=== PATIENT | female | born 1985 | race African-American/Black ===

== ENCOUNTER → 2016-07-24 | Outpatient (CLI) | payer MEDICAID | LOC: FIMAGING 16:02 | DX: R10.31 Right lower quadrant pain (principal) ==

== ENCOUNTER 2016-09-18 22:30 | Emergency (ER) | payer MEDICAID ==
--- NOTE | 2016-09-19 00:24 | EDPHY ---
H & P Stated Complaint: cough x4d, post-tussive emesis Time Seen by Provider: 09/18/16 23:47 HPI/ROS: Chief Complaint: Cough HPI: 31-year-old female with to 3 days of cough which is not productive, general malaise, subjective fevers and chills, congestion and runny nose. Patient's daughters had similar symptoms. Some posttussive vomiting. No shortness of breath. ROS: 10 point Review of Systems is negative except as noted in the HPI. PMH: None Social History: No smoking, no alcohol, no recreational drug use Family History: non-contributory Physical Exam: Gen: Awake, Alert, No Distress HEENT: Nose: no rhinorrhea Eyes: PERRLA, EOMI Mouth: Moist mucosa Neck: Supple, no JVD Chest: nontender, lungs clear to auscultation Heart: S1, S2 normal, no murmur Abd: Soft, non-tender, no guarding Back: no CVA tenderness, no midline tenderness Ext: no edema, non-tender Skin: no rash Neuro: CN II-XII intact, Sensation grossly intact, Strength 5/5 in bilateral upper and lower extremities - Personal History LMP (Females 10-55): Now Current Tetanus/Diphtheria Vaccine: Yes Current Tetanus Diphtheria and Acellular Pertussis (TDAP): Yes - Medical/Surgical History Hx Asthma: No Hx Chronic Respiratory Disease: No Hx Diabetes: No Hx Cardiac Disease: No Hx Renal Disease: No Hx Cirrhosis: No Hx Alcoholism: No Hx HIV/AIDS: No Hx Splenectomy or Spleen Trauma: No Other PMH: inactive TB (meds in 2006) - Social History Smoking Status: Never smoked Constitutional: Initial Vital Signs Temperature (C) 36.7 C 09/18/16 22:33 Heart Rate 93 09/18/16 22:33 Respiratory Rate 16 09/18/16 22:33 Blood Pressure 118/71 09/18/16 22:33 O2 Sat (%) 97 09/18/16 22:33 O2 Delivery Mode Room Air Allergies/Adverse Reactions: Egg Derived Allergy (Verified 09/18/16 22:36) EGGS Allergy (Uncoded 07/27/14 13:46) Home Medications: Medication Instructions Recorded NK [No Known Home Meds] 09/18/16 Medical Decision Making - Diagnostics Imaging Results: Imaging Impressions Chest X-Ray 09/18/16 23:52 Impression: Normal. Imaging: I viewed and interpreted images myself ED Course/Re-evaluation: Patient with viral upper respiratory symptoms and bronchitis. Chest x-ray is negative for any acute process at this time. No indication for antibiotics. Will give the patient albuterol inhaler with a spacer. Follow up with primary care physician in 3-4 days if symptoms are not improving. Departure - Departure Disposition: Home, Routine, Self-Care Clinical Impression: Acute bronchitis Condition: Good Instructions: Acute Bronchitis (ED), Wheezing (ED), Albuterol (By breathing) Additional Instructions: You may use your albuterol inhaler 1-2 puffs every 4 hours as needed for cough. Always use a spacer when you use your inhaler. Follow up with primary care physician in 2-4 days if symptoms are not improving. Referrals: Cheryl Stevens [Primary Care Provider] - As per Instructions
[2016-09-19] MEDS ORDERED: ALBUTEROL INH PREPACK MDI TAKEHOME ONE (00:41)
[2016-09-19 01:12] VITALS: BP 126/87; PULSE 90; RESP 18; TEMP 98.6; O2SAT 96
== END 2016-09-19 01:10 | disposition home or self-care (01) ==
DX: J20.9 Acute bronchitis, unspecified (principal)

== ENCOUNTER 2016-09-23 20:32 | Emergency (ER) | payer MEDICAID ==
[2016-09-23 20:43] VITALS: PULSE 106; RESP 18; TEMP 98.4
--- NOTE | 2016-09-23 21:06 | EDPHY ---
H & P Stated Complaint: seen last week, cough has continued Time Seen by Provider: 09/23/16 20:58 HPI/ROS: CHIEF COMPLAINT: Continued cough times 12 days HISTORY OF PRESENT ILLNESS: 31-year-old immunocompetent female, nonsmoker, complaining of 12 days of nonproductive cough, sore throat, rhinorrhea. She was seen the ER few days ago for similar symptoms, diagnosed with likely viral URI. No chest pain. No dyspnea. No back pain. No abdominal pain. No nuchal rigidity. No myalgias. No GI complaints. PRIMARY CARE PROVIDER:the [facility], doctor Cheryl Stevens REVIEW OF SYSTEMS: A ten point review of systems was performed and is negative with the exception of the items mentioned in the HPI PAST MEDICAL & SURGICAL HISTORY: No immunocompromised/suppressed conditions SOCIAL HISTORY: nonsmoker PHYSICAL EXAM (Prior to examination, patient consented to physical exam, hands were washed and my usual and customary physical exam procedures followed) 1) GENERAL: Well-developed, well-nourished, alert and oriented. Appears nontoxic . Coughing 2) HEAD: Normocephalic, atraumatic 3) HEENT: Pupils equal, round, reactive to light bilaterally. Sclera anicteric. Nasopharynx: Rhinorrhea, oropharynx, clear, no lesions. No tonsillar enlargement tonsillar exudate Ears bilaterally with normal tympanic membranes. 4) NECK: Full range of motion, no meningeal signs. 5) LUNGS: Clear auscultation bilaterally, no wheezes, no rhonchi, no retractions. 6) HEART: Regular rate and rhythm, no murmur, no heave, no gallop. 7) ABDOMEN: No guarding, no rebound, no focal tenderness,, 8) MUSCULOSKELETAL: No peripheral edema or discoloration. 9) BACK: , no visual or palpable abnormality. 10) SKIN: No rash, no petechiae. DIFFERENTIAL DIAGNOSIS: in no particular order including but limited to bronchitis, pneumonia, pulmonary embolus - Personal History LMP (Females 10-55): 1-7 Days Ago Current Tetanus Diphtheria and Acellular Pertussis (TDAP): Yes - Medical/Surgical History Hx Asthma: No Hx Chronic Respiratory Disease: No Hx Diabetes: No Hx Cardiac Disease: No Hx Renal Disease: No Hx Cirrhosis: No Hx Alcoholism: No Hx HIV/AIDS: No Hx Splenectomy or Spleen Trauma: No Other PMH: inactive TB (meds in 2006) - Social History Smoking Status: Never smoked Constitutional: Initial Vital Signs Temperature (C) 36.9 C 09/23/16 20:39 Heart Rate 106 H 09/23/16 20:39 Respiratory Rate 18 09/23/16 20:39 Blood Pressure 117/76 09/23/16 20:39 O2 Sat (%) 98 09/23/16 20:39 O2 Delivery Mode Room Air Allergies/Adverse Reactions: Egg Derived Allergy (Verified 09/18/16 22:36) EGGS Allergy (Uncoded 07/27/14 13:46) Home Medications: Medication Instructions Recorded AZITHROMYCIN [Z-PACK] 500 mg PO DAILY #1 packet 09/23/16 Albuterol 09/23/16 Benzonatate [Tessalon Pearles (RX)] 200 mg PO TID PRN #15 cap 09/23/16 Mucus Rlf [id number] Liq 09/23/16 Tylenol 09/23/16 Medical Decision Making ED Course/Re-evaluation: This patient has continued URI symptoms including cough. No dyspnea. She is noted to be tachycardic at 106 beats per minute. I think that pulmonary embolus is less than likely in this patient in the presence of concurrent URI symptoms. I do not think that diagnostic studies indicated. I do not think that chest areas indicated as her lungs are clear bilaterally he has maintain normal saturations not tachypneic. Given the longevity of symptoms, 12 days, I have recommended a trial of antibiotics. She is agreeable with this. She is also prescribed antitussive. Departure - Departure Disposition: Home, Routine, Self-Care Clinical Impression: Upper respiratory infection Qualifiers: URI type: unspecified URI Qualified Code(s): J06.9 - Acute upper respiratory infection, unspecified Condition: Good Instructions: Upper Respiratory Infection (ED) Additional Instructions: Return to the emergency department immediately for change in breathing habits, change in voice, change in swallowing habits, change in mental status, or any other symptoms that concern you. Referrals: Cheryl Stevens [Primary Care Provider] - 1-2 days without fail Prescriptions: AZITHROMYCIN [Z-PACK] 500 mg PO DAILY #1 packet Benzonatate [Tessalon Pearles (RX)] 200 mg PO TID PRN #15 cap PRN Reason: Cough, Moderate
[2016-09-23] MEDS ORDERED: ONDANSETRON DISINTEGRATING 4 MG TAB ONE (21:12)
[2016-09-23] MEDS ORDERED: ONDANSETRON DISINTEGRATING 4 MG TAB PO ONE (21:12)
[2016-09-23] MEDS ORDERED: ONDANSETRON 4MG PREPACK#2 BTL TAKEHOME ONE (21:28)
[2016-09-23] MEDS ORDERED: BENZONATATE 100 MG CAP PO ONE (21:33)
[2016-09-23 21:40] VITALS: BP 110/84; O2SAT 96
== END 2016-09-23 21:42 | disposition home or self-care (01) ==
DX: J06.9 Acute upper respiratory infection, unspecified (principal)

== ENCOUNTER 2016-12-31 02:19 | Emergency (ER) | payer OTHER, MEDICAID ==
[2016-12-31 02:32] VITALS: RESP 16; TEMP 98.1
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
[2016-12-31] MEDS ORDERED: IBUPROFEN 600 MG TAB PO ONE (03:15)
[2016-12-31 03:26] VITALS: BP 109/80; PULSE 88; O2SAT 99
== END 2016-12-31 03:30 | disposition home or self-care (01) ==
LOC: CED 02:19
DX: S00.83XA Contusion of other part of head, initial encounter (principal); W22.8XXA Striking against or struck by other objects, initial encounter; Y92.89 Other specified places as the place of occurrence of the external cause
CPT/HCPCS: 70110-PO

== ENCOUNTER 2017-01-17 21:08 | Emergency (ER) | payer MEDICAID, OTHER ==
[2017-01-17 21:16] VITALS: BP 123/95; PULSE 112; RESP 18; TEMP 98.4; O2SAT 96
--- NOTE | 2017-01-17 23:32 | EDPHY ---
H & P Stated Complaint: cyst increasing in size and pain after I&D yesterday. drain placed Time Seen by Provider: 01/17/17 23:29 HPI/ROS: HPI: This 32-year-old female who presents with Chief Complaint: Vaginal wound check Location: Vaginal Quality: Wound check Duration: Yesterday Signs and Symptoms: + increased pressure, + increased pain, no vaginal discharge , no vaginal bleeding, no fever, no abdominal pain, no nausea, no vomiting Timing: Gradual onset Severity: [id number] Context: Patient reports that she was at [facility] in which she had her cyst drained. She is here today as she feels increased pressure on the left side of her vaginal area accompanied by increased pain. Patient reports that she has been doing warm cyst past daily. She has a follow-up appointment on Saturday. denies hx of MRSA. not taking antibiotics. Modifying Factors: Has not tried [id number] medications and did not call primary care provider Comment: ROS: Constitutional: No fever, no chills, no weight loss Eyes: No blurred vision Respiratory: No shortness of breath, no cough Cardiovascular: No chest pain Gastrointestinal: No nausea, no vomiting no diarrhea Genitourinary: No dysuria Extremities: No myalgias Neurologic: No weakness, no numbness Skin: No rashes Hematologic: No bruising, no bleeding Source: Patient Exam Limitations: No limitations - Personal History LMP (Females 10-55): 8-14 Days Ago Current Tetanus/Diphtheria Vaccine: Yes - Medical/Surgical History Hx Asthma: Yes Hx Chronic Respiratory Disease: No Hx Diabetes: No Hx Cardiac Disease: No Hx Renal Disease: No Hx Cirrhosis: No Hx Alcoholism: No Hx HIV/AIDS: No Hx Splenectomy or Spleen Trauma: No Other PMH: bartholins cyst. inactive TB (meds in 2006) - Social History Smoking Status: Never smoked - Physical Exam Exam: CONSTITUTIONAL: Pleasant adult female, nontoxic in appearance , awake and alert, no obvious distress HEENT: Atraumatic and normocephalic, PERRL, EOMI. Tympanic membranes clear. Oropharynx clear, no exudate and moist pink mucosa. Airway patent. No lymphadenopathy. No meningismus. Cardiovascular: Normal S1/S2, regular rate, regular rhythm, without murmur rub or gallop. PULMONARY/CHEST: Symmetrical and nontender. Clear to auscultation bilaterally Good air movement. No accessory muscle usage. ABDOMEN: Soft, nondistended, nontender, no rebound, no guarding, no peritoneal signs, no masses or organomegaly. No CVAT. PELVIC: Words catheter noted in right Bartholin gland cyst- 1 palpated around catheter prudent drainage expressed approximately 3 mL, iodoform packing noted in left external labia; minimal swelling. normal cervix, cervical os was closed , no cervical motion tenderness, no adnexal mass, no discharge, no bleeding. The exam was performed with a software asset management analyst. EXTREMITIES: 2/2 pulses, no deformities, no clubbing, no cyanosis or edema. NEUROLOGICAL: no focal neuro deficits. GCS 15. SKIN: Warm and dry, no erythema. no rash. Good capillary refill. Constitutional: Initial Vital Signs Temperature (C) 36.9 C 01/17/17 21:11 Heart Rate 112 H 01/17/17 21:11 Respiratory Rate 18 01/17/17 21:11 Blood Pressure 123/95 H 01/17/17 21:11 O2 Sat (%) 96 01/17/17 21:11 O2 Delivery Mode Room Air Allergies/Adverse Reactions: Egg Derived Allergy (Verified 12/31/16 02:25) EGGS Allergy (Uncoded 07/27/14 13:46) Home Medications: Medication Instructions Recorded Albuterol 09/23/16 Bactrim DS 01/17/17 [place] 10-325 Tablet 01/17/17 Medical Decision Making Procedures: Procedure: Abscess drainage. The patient's abscess was located on the left external labia. I obtained verbal consent from the patient to drain the abscess who was informed about the possibility of bleeding and pain. Local anesthesia was achieved using 4 mL of 1 % lidocaine. The abscess was incised with #11 Scalpel and a scant amount of purulent drainage was expressed. I irrigated the wound and placed some 1 inch iodoform packing. The patient tolerated the procedure well. The procedure was performed by myself. ED Course/Re-evaluation: Words catheter on the right Bartholin's gland is functioning and draining. Iodoform packing removed from left labia and repacked. Patient tolerated procedure well. She is to continue the current course of therapy and follow-up as planned on Saturday with her primary care provider. All wounds are improving at this time Differential Diagnosis: ED differential diagnosis includes but is not limited to words catheter malfunction, abscess, cellulitis. Departure - Departure Disposition: Home, Routine, Self-Care Clinical Impression: Wound check, abscess, Cyst of right Bartholin's gland duct, Abscess of left genital labia Condition: Good Instructions: Bartholin Cyst (ED), Abscess (ED) Additional Instructions: Leave packing and Words catheter in place. Take Tylenol and/or ibuprofen as needed for pain. Keep follow-up appointment on Saturday with your primary care provider. Referrals: Cheryl Stevens [Primary Care Provider] - As per Instructions
== END 2017-01-17 23:52 | disposition home or self-care (01) ==
PROC: 0U9MXZZ Drainage of Vulva, External Approach (ICD-10-PCS; principal; 2017-01-17)
DX: N75.1 Abscess of Bartholin's gland (principal); N76.4 Abscess of vulva; J45.909 Unspecified asthma, uncomplicated

== ENCOUNTER 2017-01-18 16:44 | Emergency (ER) | payer MEDICAID ==
[2017-01-18 17:06] VITALS: TEMP 98.1
--- NOTE | 2017-01-18 18:09 | EDPHY ---
H & P Time Seen by Provider: 01/18/17 17:53 HPI/ROS: CHIEF COMPLAINT: Left labial pain HISTORY OF PRESENT ILLNESS: 32-year-old immunocompetent female arrives via private vehicle complaining of pain to the left labia incision and drainage site. Today is Saturday. She was seen at the [facility] on Saturday for right Bartholin cyst incision drainage and packing with a Word catheter. Yesterday, , she was seen in the ER for an abscess to the left labia which is size drain impact. She returns to the ER today complaining of pain from the packing. She is also complaining of pain to the bilateral inguinal region where she has noted adenopathy. Denies: Fever, chills, nausea, vomiting PHYSICAL EXAM (Prior to examination, patient consented to physical exam, hands were washed and my usual and customary physical exam procedures followed) 1) GENERAL: Well-developed, well-nourished, alert and oriented. Appears to be in no acute distress. Examination with female nurse Britni 2) HEAD: Normocephalic 3) HEENT: sclera anicteric 4) LUNGS: Breathing comfortably. 5) ABDOMEN:: soft no guarding no rebound no McBurney's point pain no peritoneal sign. Bilateral inguinal adenopathy noted. [6) : Word catheter in on right side, iodoform packing on left side which is removed at bedside. The labia is further examined no further areas of fluctuance, drainage identified. Smoking Status: Never smoked Constitutional: Initial Vital Signs Temperature (C) 36.7 C 01/18/17 17:04 Heart Rate 93 01/18/17 17:04 Respiratory Rate 16 01/18/17 17:04 Blood Pressure 118/82 H 01/18/17 17:04 O2 Sat (%) 98 01/18/17 17:04 O2 Delivery Mode Room Air Allergies/Adverse Reactions: Egg Derived Allergy (Verified 12/31/16 02:25) EGGS Allergy (Uncoded 07/27/14 13:46) Home Medications: Medication Instructions Recorded Albuterol 09/23/16 Bactrim DS 01/17/17 [place] 10-325 Tablet 01/17/17 MDM/Departure - MDM ED Course/Re-evaluation: Today is Saturday. The patient has appointment at the [facility] on Saturday. Recommend she keep this appointment. Recommend she keep taking her antibiotics until finished. At this time on evaluation the patient I do not identify any other areas of fluctuance, no indication for incision and drainage at this time. However, she has been informed that this may change she develops new areas of focal pain to return to the ER immediately for re-evaluation. - Depart Disposition: Home, Routine, Self-Care Clinical Impression: Left genital labial abscess Condition: Good Instructions: Warm Compress or Soak (ED), Abscess Follow-up (ED) Additional Instructions: Keep your appointment at the [facility] on Saturday. Return to the ER if you develop fevers, nausea, vomiting or any other symptoms that concern you Referrals: Cheryl Stevens [Primary Care Provider] - 01/21/17
[2017-01-18 18:29] VITALS: BP 109/82; PULSE 98; RESP 18; O2SAT 95
== END 2017-01-18 18:29 | disposition home or self-care (01) ==
DX: N76.4 Abscess of vulva (principal)